=== PATIENT | male | born 1975 | race Asian ===

== ENCOUNTER 2016-10-19 12:25 | Emergency (ER) | payer MEDICARE, OTHER ==
[~2016-10-19] VITALS: Ht 172.7 cm; Wt 86.9 kg
[2016-10-19] MEDS ORDERED: ONDANSETRON ODT 4 MG ONE (13:10)
[2016-10-19] MEDS ORDERED: HYDROcodone/APAP 5/325 TABLET ONE (13:10)
[2016-10-19] MEDS ORDERED: HYDROcodone/APAP 5/325 TABLET PO ONE (13:30)
[2016-10-19] MEDS ORDERED: ONDANSETRON ODT 4 MG PO ONE (13:30)
[2016-10-19] MEDS ORDERED: IBUPROFEN 200 MG TABLET PO ONE (13:30)
[2016-10-19] MEDS ORDERED: HYDROmorphone 1 MG/ML, 1ML ONE (13:56)
[2016-10-19] MEDS ORDERED: ONDANSETRON 2MG/ML, 2ML ONE (13:57)
[2016-10-19] MEDS ORDERED: PROPOFOL 10 MG/ML, 20ML ONE ×2 (14:07→14:41)
[2016-10-19] MEDS ORDERED: FENTANYL PF 100 MCG/2ML ONE (14:36)
[2016-10-19] MEDS ORDERED: FENTANYL PF 100 MCG/2ML IV ONE (15:30)
[2016-10-19] MEDS ORDERED: PROPOFOL 10 MG/ML, 20ML IVPush ONE ×2 (15:30→16:00)
[2016-10-19 16:27] VITALS: BP 159/109
== END 2016-10-19 16:29 | disposition home or self-care (01) ==
LOC: ED 15:50
DX: S52.182A Other fracture of upper end of left radius, initial encounter for closed fracture (principal); Z01.818 Encounter for other preprocedural examination; V00.131A Fall from skateboard, initial encounter; Y99.8 Other external cause status; Y93.51 Activity, roller skating (inline) and skateboarding; Y92.89 Other specified places as the place of occurrence of the external cause
CPT/HCPCS: 24600; 73070; 73080; 99152; 99153; 99285; Q0162

== ENCOUNTER → 2016-10-24 | Outpatient (CLI) | payer OTHER ==
[~2016-10-24] MED LIST: HYDR-3240 PO
== END | disposition home or self-care (01) ==
LOC: RAD 15:32
PROVIDERS: ATTEND Orthopaedic Surgery
DX: S52.122B Displaced fracture of head of left radius, initial encounter for open fracture type I or II (principal); X58.XXXA Exposure to other specified factors, initial encounter; Y93.89 Activity, other specified; Y92.89 Other specified places as the place of occurrence of the external cause; Y99.8 Other external cause status

== ENCOUNTER 2016-10-25 05:13 | Day surgery (SDC) | payer OTHER ==
[~2016-10-25] VITALS: Ht 172.7 cm; Wt 85.0 kg
[2016-10-25 05:57] VITALS: BP 163/103
[2016-10-25] MEDS ORDERED: LACTATED RINGERS 1,000 ML IV SCH (05:57)
[2016-10-25] MEDS ORDERED: HYDR-3240 PO (06:01)
[2016-10-25] MEDS ORDERED: MIDAZOLAM 1 MG/ML, 2ML ONE (06:52)
[2016-10-25] MEDS ORDERED: FENTANYL PF 250 MCG/5ML ONE (06:52)
[2016-10-25] MEDS ORDERED: BUPIVACAINE/PF 0.25% ONE (06:54)
[2016-10-25] MEDS ORDERED: DEXAMETHASONE 4 MG/ML, 1ML ONE (07:24)
[2016-10-25] MEDS ORDERED: METOCLOPRAMIDE 5 MG/ML, 2ML ONE (07:24)
[2016-10-25] MEDS ORDERED: ONDANSETRON 2MG/ML, 2ML ONE (07:24)
[2016-10-25] MEDS ORDERED: PROPOFOL 10 MG/ML, 20ML ONE (07:24)
[2016-10-25] MEDS ORDERED: CEFAZOLIN 1,000 MG ONE (07:24)
[2016-10-25] MEDS ORDERED: MEPERIDINE/PF 25MG/0.5ML IVPush PRN (08:00)
[2016-10-25] MEDS ORDERED: OXYcodone 5 MG/5 ML ORAL.SOL UDC PO PRN (08:00)
[2016-10-25] MEDS ORDERED: HYDROmorphone 1 MG/ML, 1ML IV PRN (08:00)
[2016-10-25] MEDS ORDERED: METOPROLOL 1 MG/ML, 5ML IV PRN (08:00)
[2016-10-25] MEDS ORDERED: LABETALOL 5MG/ML, 20ML IV PRN (08:00)
[2016-10-25] MEDS ORDERED: ONDANSETRON 2MG/ML, 2ML IVPush PRN (08:00)
[2016-10-25] MEDS ORDERED: hydrALAzine 20 MG/ML, 1ML IV PRN (08:00)
[2016-10-25] MEDS ORDERED: ALBUTEROL SULFATE 2.5 MG/3 ML NPPB PRN (08:00)
[2016-10-25] MEDS ORDERED: ACETAMINOPHEN 325 MG TABLET PO PRN (08:00)
[2016-10-25] MEDS ORDERED: EPHEDRINE 50 MG/ML, 1ML IVPush PRN (08:00)
[2016-10-25] MEDS ORDERED: FENTANYL PF 100 MCG/2ML IV PRN (08:00)
[2016-10-25] MEDS ORDERED: OXYcodone 5 MG/5 ML ORAL.SOL UDC ONE (09:26)
[2016-10-25] MEDS ORDERED: ACETAMINOPHEN 650 MG/20.3 ML UDC ONE (09:26)
[2016-10-25] MEDS ORDERED: ACETAMINOPHEN 325 MG TABLET ONE (09:27)
== END 2016-10-25 11:25 | disposition home or self-care (01) ==
LOC: OUT 05:13
PROVIDERS: ATTEND Orthopaedic Surgery
DX: S52.122A Displaced fracture of head of left radius, initial encounter for closed fracture (principal); S52.042A Displaced fracture of coronoid process of left ulna, initial encounter for closed fracture; S53.442A Ulnar collateral ligament sprain of left elbow, initial encounter; I10 Essential (primary) hypertension; W19.XXXA Unspecified fall, initial encounter; Y93.51 Activity, roller skating (inline) and skateboarding; Y92.9 Unspecified place or not applicable; Y99.9 Unspecified external cause status
CPT/HCPCS: 24343; 24665; 24685; 73070; 76000; C1713; J0690; J1100; J2250; J2405; J2704; J2765; J3010; J3490; J7120